=== PATIENT | male | born 1960 | race Caucasian/White ===

== ENCOUNTER 2022-04-21 17:53 | Outpatient (CLI) | payer MEDICAID, SELFPAY ==
--- NOTE | 2022-04-21 | DI.RAD_ITS ---
Exam(s) XR LUMBAR SPINE COMPLETE EXAM: XR LUMBAR SPINE COMPLETE CLINICAL HISTORY: Pt. has slip earlier today; low back pain radiating to left lower leg. TECHNIQUE: 2D digital imaging was performed of the lumbar spine. Five images were obtained. AP, la teral, right oblique, left oblique and L5-S1 spot views were obtained. COMPARISON: No exams were available for comparison FINDINGS: BONES: No fracture or destructive lesion. There are endplate osteophytes throughout the lumbar spine. Facet arthropathy is present at L5-S1. DISKS: Multilevel disc space narrowing and vacuum discs are noted. ALIGNMENT: Lumbar spinal alignment is within normal limits. Grade 1 spondylolisthesis of L5 on S1 is noted. SOFT TISSUE: Normal. IMPRESSION: No acute fracture or subluxation is seen in the lumbar spine. DATA REPOSITORY: RADIATION DOSE DELIVERED:
--- NOTE | 2022-04-21 18:04 | DI.VRAD_ITS ---
PROCEDURE INFORMATION: Exam: XR Lumbosacral Spine Exam date and time: 04/21/2022 5:47 PM Age: 61 years old Clinical indication: Injury or trauma; Fall; Other: PT. Had slip earlier today; Low back pain radiating to left lower leg; Injury date: 04/21/22 TECHNIQUE: Imaging protocol: Radiologic exam of the lumbosacral spine. Views: 4 or 5 views. COMPARISON: No relevant prior studies available. FINDINGS: Bones/joints: No acute fracture or subluxation. Suspected L5 pars defects with a degenerative grade 1 anterolisthesis over L5. Could be further worked up with CT or MRI. Endplate and facet hypertrophy as well as disc space narrowing.These findings predispose to neural foraminal and central canal stenosis. Soft tissues: Unremarkable. IMPRESSION: 1. No acute bony pathology. 2. Chronic findings as described. Dictated and Authenticated by: Teresa Braun MD. Ordering:JOSÉ MIGUEL Perez MD
== END 2022-04-21 18:13 ==
PROVIDERS: Visit Provider Physician Assistant Medical
DX: M43.16 Spondylolisthesis, lumbar region (principal)
CPT/HCPCS: 72110